=== PATIENT | female | born 1980 | race Caucasian/White ===

== ENCOUNTER 2016-09-11 14:14 | Emergency (ER) | payer MEDICAID ==
[2016-09-11] MEDS ORDERED: KETOROLAC 60 MG/2 ML VIAL IM STA (14:39)
[2016-09-11] MEDS ORDERED: KETOROLAC 60 MG/2 ML VIAL ONE ×2 (14:44→14:50)
== END 2016-09-11 15:20 | disposition home or self-care (01) ==
DX: M54.41 Lumbago with sciatica, right side (principal); G89.29 Other chronic pain; F17.200 Nicotine dependence, unspecified, uncomplicated

== ENCOUNTER 2016-10-12 13:29 | Outpatient (CLI) | payer MEDICAID | END 2016-10-12 13:30 | disposition home or self-care (01) | DX: M75.101 Unspecified rotator cuff tear or rupture of right shoulder, not specified as traumatic (principal) ==

== ENCOUNTER 2017-11-09 10:50 | Emergency (ER) | payer MEDICAID ==
--- NOTE | 2017-11-09 12:41 | ED Physician Documentation ---
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 EVENT PLANNER: Tubal ligation - Present Medications Home Medications: Ambulatory Orders Medication Instructions Recorded Confirmed Albuterol Sulfate [Proair Hfa PRN 09/11/16 Inhaler] - Allergies Allergies/Adverse Reactions: Allergies Allergy/AdvReac Type Severity Reaction Status Date / Time No Known Drug Allergies Allergy Verified 05/01/16 14:18 - Social History Does the pt smoke?: Yes Smoking Status: Current every day smoker Does the pt drink ETOH?: No Does the pt have substance abuse?: No - Immunizations Immunizations are current?: Yes Results - Vitals Vitals: Vital Signs - 24 hr 11/09/17 10:55 Temperature 37.1 C Heart Rate 91 Respiratory 16 Rate Blood Pressure 103/69 O2 Saturation 97 Oxygen O2 Source Room air
[2017-11-09] MEDS ORDERED: MORPHINE 10 MG/ML VIAL IVP STA ×2 (13:29→14:46)
[2017-11-09] MEDS ORDERED: DEXAMETHASONE 10 MG/ML VIAL IVP STA (13:29)
[2017-11-09] MEDS ORDERED: SODIUM CHLORIDE 0.9% 1,000 ML IV ONE (13:29)
[2017-11-09] MEDS ORDERED: cefTRIAXone 1 GM in SODIUM CHLORIDE 0.9% MINIBAG 100 ML IV STA (13:29)
[2017-11-09] MEDS ORDERED: KETOROLAC 60 MG/2 ML VIAL IVP STA (13:30)
[2017-11-09] MEDS ORDERED: ONDANSETRON 4 MG/2 ML VIAL IVP STA (13:30)
--- NOTE | 2017-11-09 14:02 | ED Physician Documentation ---
PD HPI URI - Stated complaint Stated Complaint: FEVER, THROAT PX - Chief complaint Chief Complaint: Fever - History obtained from History obtained from: Patient - History of Present Illness Timing - onset: How many days ago (few) Timing duration: Days (few) Timing details: Abrupt onset, Still present Associated symptoms: Fever, Sore throat, Swollen nodes. No: Nasal congestion, Rhinorrhea, Dry cough, NVD Contributing factors: No: Sick contact, Travel, Immunocompromised Improves by: No: Medication (tried ibuprofen) Worsened by: Other (swallowing) Similar symptoms before: Has not had sx before Recently seen: Not recently seen Review of Systems Constitutional: reports: Fever, Chills, Myalgias Nose: denies: Rhinorrhea / runny nose, Congestion Throat: reports: Sore throat Cardiac: denies: Chest pain / pressure, Palpitations Respiratory: denies: Dyspnea, Cough GI: denies: Nausea, Vomiting, Diarrhea Skin: denies: Rash, Lesions PD PAST MEDICAL HISTORY - Past Medical History Past 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 History: Yes 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 Musculoskeletal: Chronic back pain - Past Surgical History Past Surgical History: Yes General: Cholecystectomy Ortho: Spine surgery /ASSISTANT PUBLIC DEFENDER: Tubal ligation - Present Medications Home Medications: Ambulatory Orders Medication Instructions Recorded Confirmed Albuterol Sulfate [Proair Hfa PRN 09/11/16 Inhaler] Cephalexin [Keflex] 500 mg PO QID #24 capsule 11/09/17 Dexamethasone [Decadron] 4 mg PO DAILY #5 tablet 11/09/17 Ondansetron Odt [Zofran] 4 mg TL Q6H PRN #15 tablet 11/09/17 Oxycodone HCl/Acetaminophen 1 each PO Q6H PRN #20 tablet 11/09/17 [Percocet 5-325 mg Tablet] - Allergies Allergies/Adverse Reactions: Allergies Allergy/AdvReac Type Severity Reaction Status Date / Time No Known Drug Allergies Allergy Verified 05/01/16 14:18 - Social History Does the pt smoke?: Yes Smoking Status: Current every day smoker Does the pt drink ETOH?: No Does the pt have substance abuse?: No - Immunizations Immunizations are current?: Yes PD ED PE NORMAL - Vitals Vital signs reviewed: Yes - General General: Alert and oriented X 3, Well developed/nourished, Other (appears in pain) - HEENT HEENT: No: Pharynx benign (enlarged tonsils more to right, with surrounding tissue having swelling. No noted fluctuance per se. There is only mild deviation of the tonsil out from the side. ) - Neck Neck: Supple, no meningeal sign, Other (anterior adenopathy) - Cardiac Cardiac: RRR, No murmur - Abdomen Abdomen: Normal bowel sounds, Soft, Non tender, Non distended - Back Back: No CVA TTP - Derm Derm: Normal color, Warm and dry - Neuro Neuro: Alert and oriented X 3, No motor deficit, Normal speech Results - Vitals Vitals: Oxygen O2 Source Room air - Labs Labs: Microbiology 11/09/17 11:14 Group A Strep Throat Culture - Final Throat Beta Hemolytic Strep Group C Laboratory Tests 11/09/17 11:14 Group A Strep Rapid Negative PD MEDICAL DECISION MAKING - ED course Complexity details: re-evaluated patient (improved swallowing after meds and steroids/pain meds. ), considered differential (clinically obvious early peritonsillar abscess. Does not seem big enough/fluctuant to need I&D as yet. ) , d/w patient Departure - Departure Disposition: 01 Home, Self Care Clinical Impression: Peritonsillar cellulitis Condition: Stable Record reviewed to determine appropriate education?: Yes Instructions: ED Peritonsillar Infec Abx No I andD Follow-Up: Domo Chowdhury MD [Primary Care Provider] - Prescriptions: Cephalexin [Keflex] 500 mg PO QID #24 capsule Dexamethasone [Decadron] 4 mg PO DAILY #5 tablet Ondansetron Odt [Zofran] 4 mg TL Q6H PRN #15 tablet PRN Reason: Nausea / Vomiting Oxycodone HCl/Acetaminophen [Percocet 5-325 mg Tablet] 1 each PO Q6H PRN #20 tablet PRN Reason: Pain Comments: Drink lots of fluids. Tylenol or ibuprofen if needed for mild pain. Add Percocet if needed for worse pain. It does look like an infection around the tonsil as well as involving the tonsil. This should improve with the cephalexin antibiotic and Decadron steroid over the next few days. It should improve enough this evening into tomorrow to allow better swallowing. Recheck if not improved well in the next couple of days or if not fully resolved by 5 or 6 days. Discharge Date/Time: 11/09/17 16:31
[2017-11-09 16:32] VITALS: BP 109/65
== END 2017-11-09 16:31 | disposition home or self-care (01) ==
LOC: ED 10:50
DX: J36 Peritonsillar abscess (principal); F17.200 Nicotine dependence, unspecified, uncomplicated
CPT/HCPCS: 87070; 87430; 96365; 96375; 96376; 99283; 99284

== ENCOUNTER 2018-01-06 17:28 | Emergency (ER) | payer MEDICAID ==
--- NOTE | 2018-01-06 20:00 | ED Physician Documentation ---
PD HPI URI - Stated complaint Stated Complaint: FEVER/NEAR SYNCOPE - Chief complaint Chief Complaint: Resp - History obtained from History obtained from: Patient - History of Present Illness Timing - onset: How many days ago (few days of worse cough with colored sputum. Had had just dry cough for week prior. having wheezing exac of her asthma.) Timing duration: Days Timing details: Gradual onset, Still present Associated symptoms: Chills, Nasal congestion, Productive cough, Dyspnea. No: Sore throat, Hemoptysis, Bilateral edema Improves by: Rest, MDI/nebulizer Worsened by: Activity Similar symptoms before: Diagnosis (only has asthma syptoms with URI symptoms or allergies.) Recently seen: Not recently seen Review of Systems Constitutional: reports: Chills, Myalgias, Fatigue. denies: Fever Nose: reports: Congestion. denies: Rhinorrhea / runny nose Throat: denies: Sore throat Cardiac: reports: Pedal edema. denies: Chest pain / pressure, Palpitations, Calf pain Respiratory: reports: Dyspnea GI: reports: Nausea. 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 Musculoskeletal: Chronic back pain - Past Surgical History Past Surgical History: Yes General: Cholecystectomy Ortho: Spine surgery /ELECTRONIC IMAGING SYSTEM OPERATOR: Tubal ligation - Present Medications Home Medications: Ambulatory Orders Medication Instructions Recorded Confirmed Albuterol Sulfate [Proair Hfa PRN 09/11/16 Inhaler] Cephalexin [Keflex] 500 mg PO QID #24 capsule 11/09/17 Dexamethasone [Decadron] 4 mg PO DAILY #5 tablet 11/09/17 Ondansetron Odt [Zofran] 4 mg TL Q6H PRN #15 tablet 11/09/17 Oxycodone HCl/Acetaminophen 1 each PO Q6H PRN #20 tablet 11/09/17 [Percocet 5-325 mg Tablet] Albuterol 2.5 mg INH Q4H PRN #30 neb 01/06/18 Albuterol Sulf [Ventolin Hfa 1 - 2 puffs INH Q4HR PRN #1 inhaler 01/06/18 Inhaler] Amoxicillin 500 mg PO TID #20 capsule 07/03/18 Benzonatate [Tessalon] 100 mg PO TID PRN #25 capsule 01/06/18 Dexamethasone [Decadron] 4 mg PO DAILY #5 tablet 01/06/18 HYDROcod/ACETAM 5/325 [[place] 5/325] 1 tab PO Q6H PRN #15 tablet 01/06/18 - Allergies Allergies/Adverse Reactions: Allergies Allergy/AdvReac Type Severity Reaction Status Date / Time No Known Drug Allergies Allergy Verified 05/01/16 14:18 - Social History Does the pt smoke?: Yes Smoking Status: Current every day smoker Does the pt drink ETOH?: No Does the pt have substance abuse?: No - Immunizations Immunizations are current?: Yes PD ED PE NORMAL - Vitals Vital signs reviewed: Yes - General General: Alert and oriented X 3, No acute distress, Well developed/nourished - HEENT HEENT: Ears normal, Pharynx benign - Neck Neck: Supple, no meningeal sign, No adenopathy - Cardiac Cardiac: RRR, No murmur - Respiratory Respiratory: No respiratory distress. No: Clear bilaterally (diffuse exp wheezing without coarse sounds. ) - Abdomen Abdomen: Soft, Non tender - Female Female : Deferred - Rectal Rectal: Deferred - Back Back: No CVA TTP - Derm Derm: Normal color, Warm and dry - Extremities Extremities: No tenderness to palpate, Normal ROM s pain, No edema, No calf tenderness / cord - Neuro Neuro: Alert and oriented X 3, No motor deficit, Normal speech Results - Vitals Vitals: Oxygen O2 Source Room air PD MEDICAL DECISION MAKING - ED course Complexity details: considered differential (sounds like URI but worsening cough and with exac of asthma. The near fainting sounds reasonably related to hydration and illness, with postural symptoms. ), d/w patient - Sepsis Event Vital Signs: Oxygen O2 Source Room air Departure - Departure Disposition: 01 Home, Self Care Clinical Impression: Bronchitis, acute Qualifiers: Bronchitis organism: unspecified organism Qualified Code(s): J20.9 - Acute bronchitis, unspecified Exacerbation of asthma Qualifiers: Asthma severity: mild Asthma persistence: intermittent Qualified Code(s): J45.21 - Mild intermittent asthma with (acute) exacerbation Condition: Stable Record reviewed to determine appropriate education?: Yes Instructions: ED Upper Resp Infec Abx Tx Follow-Up: Domo Chowdhury MD [Primary Care Provider] - Prescriptions: Albuterol Sulf [Ventolin Hfa Inhaler] 1 - 2 puffs INH Q4HR PRN #1 inhaler PRN Reason: Shortness Of Air/Wheezing Albuterol 2.5 mg INH Q4H PRN #30 neb PRN Reason: Wheezing Amoxicillin 500 mg PO TID #20 capsule Benzonatate [Tessalon] 100 mg PO TID PRN #25 capsule PRN Reason: Cough Dexamethasone [Decadron] 4 mg PO DAILY #5 tablet HYDROcod/ACETAM 5/325 [[place] 5/325] 1 tab PO Q6H PRN #15 tablet PRN Reason: Pain Comments: Drink lots of fluids. Continue your nebulizer or inhaler 4 times a day regularly for the next week and added times if needed. Decadron steroid daily for 5 more days. Amoxicillin 3 times a day for a week as directed for infection. Tessalon as needed for cough. Add hydrocodone if needed for cough and pain. Recheck if not improving over the next several days. Discharge Date/Time: 01/06/18 21:19
[2018-01-06] MEDS ORDERED: DEXAMETHASONE 10 MG/ML VIAL PO STA (20:24)
[2018-01-06] MEDS ORDERED: IPRATROPIUM/ALBUTEROL 3 ML NEB INH STA (20:24)
[2018-01-06] MEDS ORDERED: guaiFENesin/CODEINE 5 ML UDC PO STA (20:24)
[2018-01-06] MEDS ORDERED: BENZONATATE 100 MG CAPSULE PO STA (20:24)
[2018-01-06] MEDS ORDERED: AMOXICILLIN 250 MG CAPSULE PO STA (20:25)
[2018-01-06 21:18] VITALS: BP 118/61
--- NOTE | 2018-01-08 12:42 | ED Physician Documentation ---
ED Addendum - Addendum Addendum: 01/08/18 12:41 Pharmacy in [place] called telephone #[phone] regarding the patient's prescription they needed these prescriptions called back in as the patient switched pharmacies. The patient's medications as prescribed by Dr. Booker were filled with the exception of the hydrocodone. As this cannot be called in.
== END 2018-01-06 21:19 | disposition home or self-care (01) ==
LOC: ED 17:28
DX: J20.9 Acute bronchitis, unspecified (principal); J45.21 Mild intermittent asthma with (acute) exacerbation; F17.200 Nicotine dependence, unspecified, uncomplicated
CPT/HCPCS: 94640; 99283; A9270